=== PATIENT | male | born 2000 | race Caucasian/White ===

== ENCOUNTER 2018-06-21 03:22 | Emergency (ER) | payer OTHER ==
--- NOTE | 2018-06-21 03:33 | ED Physician Documentation ---
PD HPI MHE - Stated complaint Stated Complaint: SI - Chief complaint Chief Complaint: MHE - History obtained from History obtained from: Patient, EMS - History of Present Illness Primary symptom: Suicidal ideation (He has had suicidal ideation and had thoughts of trying to drown himself. He has been drinking the last couple of days and tonight decided to act upon it. He did tell his girlfriend what he was going to do and she called the police who intercepted him on the way to the beach. His plan was to swim out in the cold ocean as far as he could until he got tired and could not swim back and therefore drowned.) Timing - onset: How many days ago (has had increased suicidal ideation the past few days.) Contributing factors: Substance abuse - ETOH. No: Substance abuse - drugs Similar symptoms before: Diagnosis (depression, suicidal ideation. He says he has made gestures of self harm with cutting and tried to drown himself in bathtub. Today he intended a potentially successful method.) Recently seen: Not recently seen (he says he does get counseling regularly but not past couple of weeks. Denies psych meds.) Review of Systems Constitutional: denies: Fever, Chills Nose: denies: Rhinorrhea / runny nose, Congestion Throat: denies: Sore throat Cardiac: denies: Chest pain / pressure Respiratory: denies: Cough GI: denies: Abdominal Pain, Nausea, Vomiting, Diarrhea : denies: Dysuria Skin: denies: Abrasion (s), Laceration (s) Musculoskeletal: denies: Neck pain, Back pain Neurologic: denies: Focal weakness, Numbness, Altered mental status, Headache, Head injury Psychiatric: reports: Depressed, Suicidal. denies: Homicidal Endocrine: denies: Weight loss, Easy bruising / bleeding PD PAST MEDICAL HISTORY - Past Medical History Cardiovascular: None Respiratory: None Neuro: None Endocrine/Autoimmune: None Psych: Depression - Allergies Allergies/Adverse Reactions: Allergies Allergy/AdvReac Type Severity Reaction Status Date / Time amoxicillin AdvReac Anxiety Verified 06/21/18 03:40 - Social History Does the pt drink ETOH?: Yes - Family History Family history: reports: Non contributory PD ED PE NORMAL - Vitals Vital signs reviewed: Yes - General General: Alert and oriented X 3, Well developed/nourished - HEENT HEENT: Atraumatic, Moist mucous membranes, Pharynx benign - Neck Neck: Supple, no meningeal sign, No adenopathy - Cardiac Cardiac: RRR, No murmur - Respiratory Respiratory: Clear bilaterally - Abdomen Abdomen: Soft, Non tender - Derm Derm: Normal color, Warm and dry - Extremities Extremities: No tenderness to palpate, Normal ROM s pain - Neuro Neuro: Alert and oriented X 3, No motor deficit, Normal speech (with some discordant gleefulness for the situation, presume from intoxication. He is able to tell details of the evening well, though has smell of alcohol on his breath. ) Eye Opening: Spontaneous Motor: Obeys Commands Verbal: Oriented GCS Score: 15 - Psych Psych: No: Normal mood (depressed and expresses suicidal ideation) Results - Vitals Vitals: Vital Signs - 24 hr 06/21/18 06/21/18 03:24 03:55 Temperature 36.2 C L Heart Rate 80 80 Respiratory 18 18 Rate Blood Pressure 140/98 H 140/98 H O2 Saturation 96 96 Oxygen O2 Source Room air - Labs Labs: Laboratory Tests 06/21/18 06/21/18 06/21/18 03:30 03:30 03:30 WBC 8.7 RBC 4.82 Hgb 15.4 Hct 43.9 MCV 91.1 MCH 31.9 H MCHC 35.0 RDW 12.8 Plt Count 212 MPV 8.0 Neut # (Auto) 4.1 Lymph # (Auto) 3.2 [place] # (Auto) 0.7 Eos # (Auto) 0.6 Baso # (Auto) 0.1 Absolute Nucleated RBC 0.00 Nucleated RBC % 0.0 Sodium 145 Potassium 4.0 Chloride 108 Carbon Dioxide 27 Anion Gap 10.0 BUN 10 Creatinine 0.9 Estimated GFR (MDRD) 108 Glucose 114 H Calcium 9.3 Total Bilirubin 0.3 AST 24 ALT 18 Alkaline Phosphatase 251 H Total Protein 8.1 Albumin 4.7 Globulin 3.4 Albumin/Globulin Ratio 1.4 Lipase 33 TSH 3.95 Urine Color Urine Clarity Urine pH Ur Specific [place] Urine Protein Urine Glucose (UA) Urine Ketones Urine Occult Blood Urine Nitrite Urine Bilirubin Urine Urobilinogen Ur Leukocyte Esterase Ur Microscopic Review Urine Culture Comments Salicylates Urine Opiates Screen Ur Oxycodone Screen Urine Methadone Screen Ur Propoxyphene Screen Acetaminophen Ur Barbiturates Screen Ur Tricyclics Screen Ur Phencyclidine Scrn Ur Amphetamine Screen U Methamphetamines Scrn U Benzodiazepines Scrn Urine Cocaine Screen U Cannabinoids Screen Ethyl Alcohol 290.6 06/21/18 06/21/18 06/21/18 03:30 03:30 03:36 WBC RBC Hgb Hct MCV MCH MCHC RDW Plt Count MPV Neut # (Auto) Lymph # (Auto) [place] # (Auto) Eos # (Auto) Baso # (Auto) Absolute Nucleated RBC Nucleated RBC % Sodium Potassium Chloride Carbon Dioxide Anion Gap BUN Creatinine Estimated GFR (MDRD) Glucose Calcium Total Bilirubin AST ALT Alkaline Phosphatase Total Protein Albumin Globulin Albumin/Globulin Ratio Lipase TSH Urine Color YELLOW Urine Clarity CLEAR Urine pH 7.0 Ur Specific [place] <=1.005 Urine Protein NEGATIVE Urine Glucose (UA) NEGATIVE Urine Ketones NEGATIVE Urine Occult Blood NEGATIVE Urine Nitrite NEGATIVE Urine Bilirubin NEGATIVE Urine Urobilinogen 0.2 (NORMAL) Ur Leukocyte Esterase NEGATIVE Ur Microscopic Review NOT INDICATED Urine Culture Comments NOT INDICATED Salicylates < 6.0 Urine Opiates Screen Ur Oxycodone Screen Urine Methadone Screen Ur Propoxyphene Screen Acetaminophen < 10 L Ur Barbiturates Screen Ur Tricyclics Screen Ur Phencyclidine Scrn Ur Amphetamine Screen U Methamphetamines Scrn U Benzodiazepines Scrn Urine Cocaine Screen U Cannabinoids Screen Ethyl Alcohol 293.4 06/21/18 03:36 WBC RBC Hgb Hct MCV MCH MCHC RDW Plt Count MPV Neut # (Auto) Lymph # (Auto) [place] # (Auto) Eos # (Auto) Baso # (Auto) Absolute Nucleated RBC Nucleated RBC % Sodium Potassium Chloride Carbon Dioxide Anion Gap BUN Creatinine Estimated GFR (MDRD) Glucose Calcium Total Bilirubin AST ALT Alkaline Phosphatase Total Protein Albumin Globulin Albumin/Globulin Ratio Lipase TSH Urine Color Urine Clarity Urine pH Ur Specific [place] Urine Protein Urine Glucose (UA) Urine Ketones Urine Occult Blood Urine Nitrite Urine Bilirubin Urine Urobilinogen Ur Leukocyte Esterase Ur Microscopic Review Urine Culture Comments Salicylates Urine Opiates Screen NEGATIVE Ur Oxycodone Screen NEGATIVE Urine Methadone Screen NEGATIVE Ur Propoxyphene Screen NEGATIVE Acetaminophen Ur Barbiturates Screen NEGATIVE Ur Tricyclics Screen NEGATIVE Ur Phencyclidine Scrn NEGATIVE Ur Amphetamine Screen NEGATIVE U Methamphetamines Scrn NEGATIVE U Benzodiazepines Scrn NEGATIVE Urine Cocaine Screen NEGATIVE U Cannabinoids Screen NEGATIVE Ethyl Alcohol PD MEDICAL DECISION MAKING - ED course Complexity details: reviewed results (he is intoxicated and will need to sober and then reassess his risk of suicidality. Certainly there was disinhibition with the intoxication this evening and intended a potentiall lethal mechanism. ), considered differential, d/w patient Departure - Departure Clinical Impression: Suicidal intent Depression Qualifiers: Depression Type: unspecified Qualified Code(s): F32.9 - Major depressive disorder, single episode, unspecified Alcohol intoxication Qualifiers: Complication of substance-induced condition: uncomplicated Qualified Code(s): F10.920 - Alcohol use, unspecified with intoxication, uncomplicated Condition: Stable Record reviewed to determine appropriate education?: Yes
[2018-06-21 03:52] LABS: BASOPHILS # (AUTO) 0.1 10^3/uL (0.0-0.1); EOSINOPHILS # (AUTO) 0.6 10^3/uL (0.0-0.7); EOSINOPHILS % (AUTO) 6.9 %; HGB - HEMOGLOBIN 15.4 g/dL (14.0-18.0); LYMPHOCYTES # (AUTO) 3.2 10^3/uL (1.5-3.5); MEAN CORPUSCULAR HEMOGLOBIN 31.9 pg (27.0-31.0); MEAN CORPUSCULAR VOLUME 91.1 fL (80.0-94.0); MONOCYTES # (AUTO) 0.7 10^3/uL (0.0-1.0); MONOCYTES % (AUTO) 8.1 %; NEUTROPHILS # (AUTO) 4.1 10^3/uL (1.5-6.6); PLT - PLATELET COUNT 212 10^3/uL (130-450); RED BLOOD COUNT 4.82 10^6/uL (4.70-6.10); RED CELL DISTRIBUTION WIDTH 12.8 % (12.0-15.0); WHITE BLOOD COUNT 8.7 x10^3/uL (4.8-10.8)
[2018-06-21 03:58] LABS: MUDS CUTOFF CONCENTRATIONS CUTOFF CONC BELOW:
[2018-06-21 03:59] LABS: ALBUMIN 4.7 g/dL (3.2-5.5); ALBUMIN/GLOBULIN RATIO 1.4 (1.0-2.2); BILIRUBIN,TOTAL 0.3 mg/dL (0.2-1.0); CALCIUM 9.3 mg/dL (8.5-10.3); CREATININE 0.9 mg/dL (0.6-1.2); TOTAL PROTEIN 8.1 g/dL (6.7-8.2)
[2018-06-21 04:02] LABS: ACETAMINOPHEN < 10 ug/mL (10-30); SALICYLATE < 6.0 mg/dL
[2018-06-21 04:06] LABS: BILIRUBIN,URINE NEGATIVE (NEGATIVE); GLUCOSE, URINE (UA) NEGATIVE (NEGATIVE); KETONES,URINE (UA) NEGATIVE (NEGATIVE); LEUKOCYTE ESTERASE, URINE NEGATIVE (NEGATIVE); NITRITE,URINE NEGATIVE (NEGATIVE); OCCULT BLOOD,URINE NEGATIVE (NEGATIVE); PROTEIN,URINE NEGATIVE (NEGATIVE); UROBILINOGEN,URINE 0.2 (NORMAL) E.U./dL (NORMAL)
[2018-06-21 04:12] LABS: CLARITY,URINE CLEAR (CLEAR)
[2018-06-21 04:21] LABS: AMPHETAMINE SCREEN,URINE NEGATIVE (NEGATIVE); BENZODIAZEPINES SCREEN, URINE NEGATIVE (NEGATIVE); COCAINE SCREEN URINE NEGATIVE (NEGATIVE); METHADONE SCREEN, URINE NEGATIVE (NEGATIVE); METHAMPHETAMINES SCREEN, URINE NEGATIVE (NEGATIVE); OPIATE SCREEN, URINE NEGATIVE (NEGATIVE); OXYCODONE SCREEN, URINE NEGATIVE (NEGATIVE); PROPOXYPHENE SCREEN, URINE NEGATIVE (NEGATIVE); TRICYCLIC ANTIDEPRESSANT,URINE NEGATIVE (NEGATIVE)
--- NOTE | 2018-06-22 01:04 | TELEPSYCH PHYS NOTE ---
Telepsych Note - CHIEF COMPLAINT/HX OF PRESENT ILLNESS Cheif Complaint and History of Present Illness: PT is a 18y/o swm brought in after his gf called with concerns for his safety. Pt has been depressed with suicidal thoughts and said he was going to swim out in the cold water until he was too exhausted to get back and he would drown. HE said he is sleeping 8-10hrs night, feeling depressed, hopeless with no energy. He denied thoughts of harm to others or h/o violence. He denied s/o tito or current perceptual disturbances. He denied h/o trauma or abuse. He said his appetite has been normal. Pt admits to use of alcohol with blackouts. He denied illicit drug use. - SI/HI/SELF HARM SI/HI/SELF HARM (CURRENT OR HISTORY OF):: SI, Self Harm SI/HI/Self Harm Text (Current or History of):: Pt has a h/o attempted suicide by trying to drown himself in the tub and cutting. He denied homicidal thoughts or h/o violence. - VIOLENCE/LEGAL/COLLATERAL Violence - Legal - Collateral: Pt has no h/o legal issues. Pt provided consent to speak with his mother Bri, , however there was no answer. - PSYCHIATRIC HX/TREATMENT HX Psychiatric: Depression Psychiatric/Treatment Hx Other: Pt has been to therapy in the past but denied prior hospitalizations. He is not currently in therapy. He is prescribed lexapro and has been taking it about 3mo. - DRUG/ALCOHOL HX ETOH Use: Liquor Substance use/abuse/alcohol text: Pt admits to alcohol with h/o blackouts but denied DTs or sz. He denied illicit drug use - MEDICAL HX Does the pt have a hx of MRSA?: No Neurological History: None Cardiovascular: None Respiratory: None, Asthma Endocrine/Autoimmune: None PMH Other: Pt denied h/o sz or head trauma - HOME MEDICATIONS Home Meds (as last confirmed): Patient History Medication Instructions Recorded Confirmed Cetirizine [ZyrTEC] 10 mg PO ONCE 06/21/18 06/21/18 Escitalopram [Lexapro] 10 mg PO DAILY 06/21/18 06/21/18 - ALLERGIES Allergies (as last confirmed): Allergies Allergy/AdvReac Type Severity Reaction Status Date / Time amoxicillin AdvReac Anxiety Verified 06/21/18 03:40 - FAMILY PSYCH/SUICIDE/SOCIAL HX-MENTAL Family - Suicide - Social Hx and Mental Status Exam: Fh: Pt said anxiety and depression run on both sides of the family. No substance issues or suicides. Sh: Pt was living with his gf of 2yrs but is currently living with his mother, step dad and "lots of siblings". He denied h/o abuse. He said his mother is supportive. 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 He denied access to guns or legal issues. MSE: Pt presented neatly groomed with limited eye contact. His eyes were swollen as if he had been crying but may just be fatigue. He endorsed feeling depressed and he displayed a constricted affect. His speech was soft. His thought process was goal directed. He did not appear manic or internally preoccupied. He seemed to minimize events leading to his coming to the hospital. Insight and judgment were limited. 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 He has tried to drown himself in the tub in the past and cut as well. He told his gf he was going to swim out into the cold water until he was too exhausted to make it back and he would drown. He was drinking at the time also and admits to h/o blackouts when drinking. BAL 290. Pt now minimizing, stating he probably would have just stood on the beach. He is not currently working. He said he and his gf of 2yrs had gotten in an argument. Pt does have a family hx of anxiety and depression. He lives with his mother, who he lists as his main support and admits she is worried about him. He gave consent to speak with her but I was unable to reach her at this hour. Pt presents very soft spoken with swollen eyes and a constricted affect. He has been on Lexapro and said it makes him more tired. He does not have an outpatient provider at this time. Given suicidal thoughts with a potentially lethal plan, h/o prior attempt, poor impulse control further enhanced by excess alcohol, recommend admit for safety. 1. Recommend admit to dual dx if available for mood stabilization, safety and substance treatment 2. Provide safety precautions. 3. Monitor for alcohol w/d with [facility] and initiate detox if needed. 4. Continue lexapro for now and defer psychopharm rec to inpatient treatment team. - TIME SPENT & PROVIDER LOCATION Telepsych consultation conducted via videoconferencing: Yes List names and roles of persons who participated in consult: Ember Fernando/psychiatrist and Jose Aguilar Telepsych Provider Location: [place] Time Telepsych consult began: 03:10 Time Telepsych consult completed: 04:20
--- NOTE | 2018-06-22 06:51 | ED Physician Documentation ---
ED Addendum - Addendum Addendum: 06/22/18 06:51 I consulted tele-psychiatry per the social work note. They recommend admission to a psych [facility] for safety. Patient is agreeable to this at this time. We will have social work follow-up in the morning.
[2018-06-22 12:06] VITALS: BP 137/85
--- NOTE | 2018-06-22 13:50 | ED Physician Documentation ---
ED Addendum - Addendum Addendum: 18-year-old male with suicidal ideology and alcohol intoxication has been in the emergency department now for 2 days and the licensed master social worker is able to contract with the patient for no harm and plans have been put in place for follow-up. The patient will go to [facility] and follow-up with his primary care doctor tomorrow and he has appointment for counseling set up as well. He is discharged in the care of his mother. 06/22/18 13:48
== END 2018-06-22 14:15 | disposition home or self-care (01) ==
LOC: ED 03:22
DX: R45.851 Suicidal ideations (principal); F32.9 Major depressive disorder, single episode, unspecified; F10.920 Alcohol use, unspecified with intoxication, uncomplicated; Z81.8 Family history of other mental and behavioral disorders
CPT/HCPCS: 36415; 80053; 80306; 80307; 80320; 80329; 81003; 83690; 84443; 85025; 99284; G0427; Q3014; 81001; 87086